=== PATIENT | female | born 1980 | race Caucasian/White ===

== ENCOUNTER 2024-11-23 18:58 | Emergency (ER) | payer OTHER ==
[~2024-11-23] VITALS: Ht 160 cm; Wt 63.0 kg
[2024-11-23 19:02] VITALS: O2SAT 99
[2024-11-23 19:03] VITALS: BP 143/100; PULSE 83; RESP 16; TEMP 36.8; O2SAT 99
[2024-11-23] MEDS ORDERED: [UNRECOGNIZED DRUG - CODE] LEFT EAR ×2 (19:35→21:41)
[2024-11-23] MEDS ORDERED: OFLO5DRO4 LEFT EAR ×2 (19:35→21:41)
== END 2024-11-23 19:55 | disposition home or self-care (01) ==
LOC: ER 18:58
DX: H60.92 Unspecified otitis externa, left ear (principal)
CPT/HCPCS: 99283